=== PATIENT | female | born 2000 | race American Indian/Alaskan Native ===

== ENCOUNTER 2018-07-18 01:22 | Emergency (ER) | payer MEDICAID ==
[2018-07-18 01:42] VITALS: BP 123/62
--- NOTE | 2018-07-18 01:49 | Emergency Department Report ---
ED Abdominal Pain HPI - General Chief Complaint: Wound/Laceration Stated Complaint: BLEEDING FROM C SECTION Time Seen by Provider: 07/18/18 01:47 Source: patient, EMS Mode of arrival: Stretcher Limitations: No Limitations - History of Present Illness Initial Comments: Patient is a 18-year-old female that presents emergency room with complaints of abdominal pain at site and bleeding. Patient states she had a C- section on July 09 and bleeding was controlled but this morning she woke up with a large amount of blood coming from her site and pain. Patient states the pain is a 6 out of 10. Patient denies fever and chills. Patient states the pain is better with rest and worse with palpation and movement. Patient states she has soaked through many towels and pads. Patient denies nausea vomiting. Patient denies vaginal bleeding. MD Complaint: abdominal pain -: Sudden Location: suprapubic Radiation: none Migration to: no migration Severity: moderate Severity scale (0 -10): 6 Quality: stabbing Consistency: constant Improves With: rest Worsens With: movement Associated Symptoms: denies: nausea, vomiting, diarrhea, fever, chills, constipation, dysuria, hematemesis, hematochezia, melena, hematuria, anorexia, syncope - Related Data LMP (females 10-50): unknown Allergies Allergy/AdvReac Type Severity Reaction Status Date / Time No Known Allergies Allergy Unverified 07/18/18 01:33 ED Review of Systems ROS: Stated complaint: BLEEDING FROM C SECTION Other details as noted in HPI Constitutional: denies: chills, fever Eyes: denies: eye pain, eye discharge, vision change ENT: denies: ear pain, throat pain Respiratory: denies: cough, shortness of breath, wheezing Cardiovascular: denies: chest pain, palpitations Endocrine: no symptoms reported Gastrointestinal: abdominal pain. denies: nausea, diarrhea Genitourinary: denies: urgency, dysuria, discharge Musculoskeletal: denies: back pain, joint swelling, arthralgia Skin: denies: rash, lesions Neurological: denies: headache, weakness, paresthesias Psychiatric: denies: anxiety, depression Hematological/Lymphatic: denies: easy bleeding, easy bruising ED Past Medical Hx - Past Medical History Previous Medical History?: No - Surgical History Past Surgical History?: Yes Additional Surgical History: - Family History Family history: no significant - Social History Smoking Status: Never Smoker Substance Use Type: None ED Physical Exam - General Limitations: No Limitations General appearance: alert, in no apparent distress - Head Head exam: Present: atraumatic, normocephalic - Eye Eye exam: Present: normal appearance - ENT ENT exam: Present: mucous membranes moist - Neck Neck exam: Present: normal inspection - Respiratory Respiratory exam: Present: normal lung sounds bilaterally. Absent: respiratory distress - Cardiovascular Cardiovascular Exam: Present: regular rate, normal rhythm. Absent: systolic murmur, diastolic murmur, rubs, gallop - GI/Abdominal GI/Abdominal exam: Present: soft, distended, tenderness (tenderness over C- section site.), normal bowel sounds - Extremities Exam Extremities exam: Present: normal inspection - Back Exam Back exam: Present: normal inspection - Neurological Exam Neurological exam: Present: alert, oriented X3 - Psychiatric Psychiatric exam: Present: normal affect, normal mood - Skin Skin exam: Present: warm, dry, intact, normal color. Absent: rash ED Course Vital Signs 07/18/18 01:33 Temperature 98.2 F Pulse Rate 62 Respiratory 18 Rate Blood Pressure 123/62 O2 Sat by Pulse 99 Oximetry - Reevaluation(s) Reevaluation #1: Discussed all results with patient. Patient needs a CAT scan to further abdominal pain and surgical site, patient. Patient agrees to this CAT scan. 07/18/18 03:45 She states she does not want to wait anymore and wants to leave the hospital. Discussed the risk patient. Patient voiced understanding of the wrist. Patient signed AMA form. Patient left the hospital AGAINST MEDICAL ADVICE. 07/18/18 04:20 ED Medical Decision Making - Lab Data Result diagrams: 07/18/18 02:01 07/18/18 02:01 - Medical Decision Making Patient is a 18-year-old female that was brought in by EMS for abdominal pain and bleeding from her site. Patient had labs done and were unremarkable except for anemia. Patient had a CT done. After CT was done and before the results came back, patient decided to leave AGAINST MEDICAL ADVICE. Patient signed out AGAINST MEDICAL ADVICE and left the hospital AGAINST MEDICAL ADVICE. The risk was discussed with patient. Patient voiced understanding of risks. Patient also given follow-up instructions - Differential Diagnosis abdominal pain. Surgical site complication. Surgical site bleeding Critical care attestation.: If time is entered above; I have spent that time in minutes in the direct care of this critically ill patient, excluding procedure time. ED Disposition Clinical Impression: Wound infection/hemorrhage, obstetric surgical, condition Abdominal pain Qualifiers: Abdominal location: lower abdomen, unspecified Qualified Code(s): R10.30 - Lower abdominal pain, unspecified Anemia Qualifiers: Anemia type: unspecified type Qualified Code(s): D64.9 - Anemia, unspecified Disposition: LEFT AGAINST MED ADVICE Is pt being admited?: No Does the pt Need Aspirin: No Condition: Undetermined Additional Instructions: The patient instructed to follow up with primary care in 2-3 days for patient instructed to follow up with [facility] in 2-3 days. Patient to return to ER if condition worsens. Patient to take a vitamin and iron tabs. Patient left the hospital AGAINST MEDICAL ADVICE but all instructions given to patient prior to leaving.. Referrals: PRIMARY CARE, [Primary Care Provider] - 2-3 Days Time of Disposition: 04:36
[2018-07-18 02:14] LABS: Basophils % (Auto) 0.2 % (0.0-1.8); Eosinophils # (Auto) 0.1 K/mm3 (0.0-0.4); Eosinophils % (Auto) 1.3 % (0.0-4.3); Hematocrit 26.4 % (30.3-42.9); Hemoglobin 8.9 gm/dl (10.1-14.3); Lymphocytes # (Auto) 2.8 K/mm3 (1.2-5.4); Lymphocytes % (Auto) 39.8 % (13.4-35.0); Mean Corpuscular HGB Conc 34 % (30-34); Mean Corpuscular Volume 85 fl (79-97); Monocytes # (Auto) 0.9 K/mm3 (0.0-0.8); Monocytes % (Auto) 12.5 % (0.0-7.3); Platelet Count 380 K/mm3 (140-440); Red Blood Count 3.12 M/mm3 (3.65-5.03)
[2018-07-18 02:37] LABS: BUN/Creatinine Ratio 20; Blood Urea Nitrogen 8 mg/dL (7-17); Calcium 8.4 mg/dL (8.4-10.2); Hemolysis Index 3
--- NOTE | 2018-07-18 04:53 | Cat Scan Report ---
FINAL REPORT PROCEDURE: CT ABDOMEN PELVIS WO CON TECHNIQUE: Computerized axial tomography of the abdomen and pelvis was performed without intravenous contrast. This study is performed without intravascular contrast material and its sensitivity for ab dominal and pelvic pathology, including neoplasms, inflammation, abscess, free fluid, thrombosis, art erial dissection and infarction, is reduced compared with a contrast enhanced study. HISTORY: abd pain COMPARISON: No prior studies are available for comparison. FINDINGS: Visualized lower thorax: There are bilateral pleural effusions.. Liver: Normal size and attenuation. Spleen: Normal size and attenuation. Gallbladder and biliary system: Normal. Pancreas: Normal. Adrenals: Normal. Kidneys: There are no kidney stones. There is no hydronephrosis per. GI tract: There is no bowel obstruction, colitis or enteritis. The appendix is not seen.. Lymph nodes and mesentery: Normal. Vasculature: Normal. Bladder: Normal. Reproductive organs: Uterus is enlarged. IUD is in proper position.. Peritoneum: There are pockets of peritoneal air most likely due to recent surgery.. Musculoskeletal structures: No significant abnormality. Other: There is subcutaneous induration in the lower anterior abdominal wall and pockets of air sugge sting recent surgery.. IMPRESSION: There are small bilateral pleural effusions.. There are no kidney stones. There is no hydronephrosis per. There is no bowel obstruction, colitis or enteritis. The appendix is not seen.. Uterus is enlarged. IUD is in proper position.. There are pockets of peritoneal air most likely due to recent surgery.. There is subcutaneous induration in the lower anterior abdominal wall and pockets of air suggesting r ecent surgery. .
== END 2018-07-18 04:24 | disposition left against medical advice (07) ==
LOC: ED 01:22
DX: O86.00 Infection of obstetric surgical wound, unspecified (principal); O90.89 Other complications of the puerperium, not elsewhere classified; D64.9 Anemia, unspecified
CPT/HCPCS: 36415; 74176; 80048; 82140; 84703; 85025; 99284

== ENCOUNTER 2020-05-29 19:54 | Outpatient (CLI) | payer MEDICAID ==
[2020-05-29 20:14] VITALS: BP 125/66
[2020-05-29 20:38] LABS: Bacteria,Urine 2+ /HPF (Negative); Bilirubin,Urine NEG (Negative); Blood,Urine NEG (Negative); Color,Urine Yellow (Yellow); Hyaline Casts,Urine 1 /LPF; Mucus,Urine FEW /HPF; Protein,Urine <15 mg/dL mg/dL (Negative); Urobilinogen,Urine < 2.0 mg/dL (<2.0)
--- NOTE | 2020-05-29 21:27 | Ultrasound Report ---
ULTRASOUND OBSTETRIC LIMITED INDICATION / CLINICAL INFORMATION: leaking fluid x2days. Clinical Gestational Age (GA): 38.5 weeks.days COMPARISON: None available. FINDINGS: HEART RATE (beats per minute): 124 AMNIOTIC FLUID INDEX (cm) = 10.1 (normal = 7-24 cm) PRESENTATION: Cephalic. ADDITIONAL FINDINGS: None. IMPRESSION: 1. Single living intrauterine gestation in cephalic position. No significant abnormality. 2. Amniotic fluid index is 10.1 cm. Signer Name: Kwesi Patel MD Signed: 05/29/2020 9:22 PM Workstation Name: [id number]
== END 2020-05-29 20:54 | disposition home or self-care (01) ==
LOC: TRG 19:54 → APU 20:09 → TRG 20:54
PROVIDERS: ATTEND Obstetrics & Gynecology
DX: O42.92 Full-term premature rupture of membranes, unspecified as to length of time between rupture and onset of labor (principal); Z3A.38 38 weeks gestation of pregnancy
CPT/HCPCS: 59025; 76815; 81001